=== PATIENT | female | born 1950 | race Caucasian/White ===

== ENCOUNTER → 2017-05-09 | Outpatient (CLI) | payer OTHER, BC | LOC: FIMAGING 12:53 | PROVIDERS: ATTEND Internal Medicine | DX: Z12.39 Encounter for other screening for malignant neoplasm of breast (principal); N64.4 Mastodynia; N63 Unspecified lump in breast | CPT/HCPCS: 76641; G0204 ==

== ENCOUNTER → 2017-06-25 | Outpatient (CLI) | payer OTHER, BC | LOC: CIMAGING 11:18 | PROVIDERS: ATTEND Internal Medicine | DX: R91.1 Solitary pulmonary nodule (principal); N63 Unspecified lump in breast; Z87.891 Personal history of nicotine dependence | CPT/HCPCS: 71250-PO ==

== ENCOUNTER → 2018-04-28 | Outpatient (CLI) | payer OTHER, BC | LOC: GIMAGING 12:16 | PROVIDERS: ATTEND Internal Medicine | DX: M43.16 Spondylolisthesis, lumbar region (principal); M53.87 Other specified dorsopathies, lumbosacral region; M48.05 Spinal stenosis, thoracolumbar region | CPT/HCPCS: 72100-PO ==

== ENCOUNTER → 2018-07-14 | Outpatient (CLI) | payer OTHER, BC | LOC: FIMAGING 14:29 | PROVIDERS: ATTEND Internal Medicine | DX: Z12.31 Encounter for screening mammogram for malignant neoplasm of breast (principal); Z85.3 Personal history of malignant neoplasm of breast; Z90.12 Acquired absence of left breast and nipple ==